=== PATIENT | female | born 1995 | race Caucasian/White ===

== ENCOUNTER 2018-09-24 11:37 | Emergency (ER) | payer OTHER ==
[2018-09-24 13:54] VITALS: BP 117/56
--- NOTE | 2018-09-24 14:12 | UC ---
Throat Pain/Nasal Adonis HPI - HPI Summary HPI Summary: Sore throat for 2 days. She thinks she's had some fever and chills. She's going on spring and look like strep test. - History of Current Complaint Chief Complaint: UCRespiratory Stated Complaint: SORE THROAT,CONGESTION,HEADACHE Time Seen by Provider: 09/24/18 14:05 Hx Obtained From: Patient Hx Last Menstrual Period: 09/07/18 ?: No Onset/Duration: Gradual Onset Severity: Mild Pain Intensity: 3 Cough: Nonproductive - Occasional cough with clear sputum Associated Signs & Symptoms: Positive: Fever, Other - Mild body aches intermittently - Epiglottits Risk Factors Epiglottis Risk Factors: Negative - Allergies/Home Medications Allergies/Adverse Reactions: Allergies Allergy/AdvReac Type Severity Reaction Status Date / Time No Known Allergies Allergy Verified 09/24/18 13:49 Home Medications: Home Medications Amphetamine MIXED SALTS TAB* [Adderall TAB*] 25 mg PO DAILY 09/24/18 [History Confirmed 09/24/18] Norgestimate-Ethinyl Estradiol [[place]] 1 tab PO DAILY 09/24/18 [History Confirmed 09/24/18] PMH/Surg Hx/FS Hx/Imm Hx Previously Healthy: Yes - Surgical History Surgical History: None - Social History Occupation: Student Lives: Dormitory/Roommates Alcohol Use: Occasionally Substance Use Type: None Smoking Status (MU): Never Smoked Tobacco - Immunization History Most Recent Influenza Vaccination: has not had Vaccination Up to Date: Yes Review of Systems All Other Systems Reviewed And Are Negative: Yes Constitutional: Positive: Fever, Chills Skin: Positive: Negative Eyes: Positive: Negative ENT: Positive: Sore Throat Respiratory: Positive: Cough - Occasional nonproductive cough Cardiovascular: Positive: Negative Gastrointestinal: Positive: Negative Genitourinary: Positive: Negative Motor: Positive: Negative Neurovascular: Positive: Negative Musculoskeletal: Positive: Negative Neurological: Positive: Negative Psychological: Positive: Negative Is Patient Immunocompromised?: No Physical Exam Triage Information Reviewed: Yes Appearance: Well-Appearing, No Pain Distress, Well-Nourished Vital Signs: Initial Vital Signs Temp 98.2 F 09/24/18 13:48 Pulse 96 09/24/18 13:48 Resp 16 09/24/18 13:48 BP 117/56 09/24/18 13:48 Pulse Ox 100 09/24/18 13:48 Vital Signs Reviewed: Yes Eye Exam: Normal ENT: Positive: Pharyngeal erythema - Minimal erythema posterior pharynx, TMs normal, Uvula midline. Negative: Tonsillar swelling, Tonsillar exudate, Trismus Neck exam: Normal Neck: Positive: Supple, Nontender, No Lymphadenopathy Respiratory Exam: Normal Cardiovascular Exam: Normal Abdominal Exam: Normal Abdomen Description: Positive: Nontender, No Organomegaly, Soft Bowel Sounds: Positive: Present Musculoskeletal Exam: Normal Neurological Exam: Normal Psychological Exam: Normal Skin Exam: Normal Throat Pain/Nasal Course/Dx - Course Course Of Treatment: Patient has been comfortable here. Rapid strep is negative. - Differential Dx/Diagnosis Differential Diagnosis/HQI/PQRI: Pharyngitis Provider Diagnosis: Pharyngitis Discharge - Sign-Out/Discharge Documenting (check all that apply): Patient Departure All imaging exams completed and their final reports reviewed: No Studies - Discharge Plan Condition: Good Disposition: HOME Patient Education Materials: Pharyngitis (ED) Referrals: Krzysztof Crespo DO [Primary Care Provider] - Additional Instructions: Increase fluids, warm saltwater gargles, throat lozenges for comfort. Tylenol every 4 hours may alternate with Motrin every 6 or 8 hours for fever. Aloe up at the [facility] if no improvement in 3 or 4 days. - Billing Disposition and Condition Condition: GOOD Disposition: Home - Attestation Statements Provider Attestation: I was available for consult. This patient was seen by the FABIAN. The patient was not presented to, seen by, or examined by me. -Floyd
== END 2018-09-24 14:34 | disposition home or self-care (01) ==
LOC: UCCORT 11:37
DX: J02.9 Acute pharyngitis, unspecified (principal)
CPT/HCPCS: 87651; 99211; G0463

== ENCOUNTER 2019-07-03 08:26 | Emergency (ER) | payer OTHER ==
[2019-07-03 08:39] VITALS: BP 95/45
--- NOTE | 2019-07-03 09:00 | UC ---
Throat Pain/Nasal Adonis HPI - HPI Summary HPI Summary: 24 yo female with sore throat x 1 day no fever has had chills no nasal congestion or cough she has had mono - History of Current Complaint Chief Complaint: UCGeneralIllness Stated Complaint: SORETHROAT Time Seen by Provider: 07/03/19 08:55 Hx Obtained From: Patient Hx Last Menstrual Period: 07/01/19 Onset/Duration: Gradual Onset Severity: Mild Pain Intensity: 4 Pain Scale Used: 0-10 Numeric Cough: None - Epiglottits Risk Factors Epiglottis Risk Factors: Negative - Allergies/Home Medications Allergies/Adverse Reactions: Allergies Allergy/AdvReac Type Severity Reaction Status Date / Time No Known Allergies Allergy Verified 07/03/19 08:39 Home Medications: Home Medications Etonogestrel [Nexplanon] 68 mg IMPLANT 07/03/19 [History] PMH/Surg Hx/FS Hx/Imm Hx Previously Healthy: Yes - Surgical History Surgical History: None - Family History Known Family History: Positive: Cardiac Disease, Hypertension, Diabetes - Social History Alcohol Use: Occasionally Substance Use Type: None Smoking Status (MU): Never Smoked Tobacco - Immunization History Most Recent Influenza Vaccination: has not had Vaccination Up to Date: Yes Review of Systems All Other Systems Reviewed And Are Negative: Yes Constitutional: Positive: Chills Skin: Positive: Negative Eyes: Positive: Negative ENT: Positive: Sore Throat Respiratory: Positive: Negative Cardiovascular: Positive: Negative Gastrointestinal: Positive: Negative Genitourinary: Positive: Negative Motor: Positive: Negative Neurovascular: Positive: Negative Musculoskeletal: Positive: Negative Neurological: Positive: Negative Psychological: Positive: Negative Physical Exam Triage Information Reviewed: Yes Appearance: Well-Appearing, No Pain Distress, Well-Nourished Vital Signs: Initial Vital Signs Temp 98.2 F 07/03/19 08:33 Pulse 80 07/03/19 08:33 Resp 16 07/03/19 08:33 BP 95/45 07/03/19 08:33 Pulse Ox 100 07/03/19 08:33 Vital Signs Reviewed: Yes Eyes: Positive: Conjunctiva Clear ENT: Positive: Hearing grossly normal, Tonsillar swelling, Tonsillar exudate, Uvula midline. Negative: Nasal congestion, Nasal drainage, Trismus, Hoarse voice Neck: Positive: Supple, Enlarged Nodes @ - ant cervical Respiratory: Positive: Lungs clear, Normal breath sounds, No respiratory distress, No accessory muscle use Cardiovascular: Positive: RRR, No Murmur Musculoskeletal: Positive: ROM Intact, No Edema Neurological: Positive: Alert Psychological Exam: Normal Skin Exam: Normal Throat Pain/Nasal Course/Dx - Course Course Of Treatment: strep (-) - Differential Dx/Diagnosis Provider Diagnosis: Tonsillitis Discharge ED - Sign-Out/Discharge Documenting (check all that apply): Patient Departure All imaging exams completed and their final reports reviewed: No Studies - Discharge Plan Condition: Stable Disposition: HOME Patient Education Materials: Tonsillitis (ED) Referrals: Krzysztof Crespo DO [Primary Care Provider] - If Needed Additional Instructions: warm salt water gargles tylenol or advil recheck for worsening symptoms recheck in 3 days if not better culture pending - Billing Disposition and Condition Condition: STABLE Disposition: Home
--- NOTE | 2019-07-05 11:28 | UC ---
- Progress Note Progress Note: Reviewed notes and cx result from 04/03/19. + strep gp c. + symptomatic. Rx e-scribed for amoxicillin to pharmacy of record. RN to call pt with the above. Hydrate. Probiotic and / or yogurt daily while taking antibiotic. Course/Dx - Diagnoses Provider Diagnoses: Tonsillitis Discharge ED - Sign-Out/Discharge Documenting (check all that apply): Post-Discharge Follow Up All imaging exams completed and their final reports reviewed: No Studies - Discharge Plan Condition: Stable Disposition: HOME Prescriptions: Amoxicillin PO (*) [Amoxicillin 875 MG (*)] 875 mg PO BID #20 tab Patient Education Materials: Tonsillitis (ED) Referrals: Kzrysztof Crespo DO [Primary Care Provider] - If Needed Additional Instructions: warm salt water gargles tylenol or advil recheck for worsening symptoms recheck in 3 days if not better culture pending - Billing Disposition and Condition Condition: STABLE Disposition: Home
== END 2019-07-03 09:10 | disposition home or self-care (01) ==
LOC: UCCORT 08:26
DX: J03.90 Acute tonsillitis, unspecified (principal)
CPT/HCPCS: 87070; 87077; 87651; 99211; G0463